=== PATIENT | female | born 1970 | race American Indian/Alaskan Native ===

== ENCOUNTER 2017-09-30 07:02 | Day surgery (SDC) | payer MEDICAID ==
[2017-09-30 07:46] VITALS: BMI 31.6
[2017-09-30] MEDS ORDERED: Bupivacaine 0.5% Inj(30mL) ONE (09:05)
[2017-09-30] MEDS ORDERED: Lidocaine 1% Inj (20ml) ONE (09:05)
--- NOTE | 2017-09-30 09:19 | CP.SDSHP ---
Same Day Surgery H & P - History Proposed Procedure: 1. Radiofrequency of right foot. 2. Stem cell injection right foot Pre-Op Diagnosis: Neuritis, right foot - Allergies Allergies: Allergies No Known Allergies Allergy (Verified 09/30/17 07:46) - Physical Exam Vital Signs: Vital Signs 09/30/17 09/30/17 07:32 07:35 Temperature 98.2 F Pulse Rate 89 89 Respiratory 20 Rate Blood Pressure 150/90 O2 Sat by Pulse 98 Oximetry - {Optional Preform as Required} Ortho: Other (pain, right foot) Short Stay Discharge - Short Stay Discharge Admitting Diagnosis/Reason for Visit: M77.31,M72.2 Disposition: HOME/ ROUTINE Referrals: Logan Best DPM [Primary Care Provider] -
[2017-09-30] MEDS ORDERED: Midazolam 2 MG/2 ML VIAL ONE (09:20)
[2017-09-30] MEDS ORDERED: Propofol 10 mg/ml Inj (20 ML) ONE (09:20)
[2017-09-30] MEDS ORDERED: Bupivacaine 0.5% Inj(30mL) IJ ONE (09:28)
[2017-09-30] MEDS ORDERED: Lidocaine 1% Inj (20ml) IJ ONE ×2 (09:28→09:35)
[2017-09-30] MEDS ORDERED: ceFAZolin IV 2 gm in Dextrose 2 GM/50 ML BAG IVPB ONE (09:28)
[2017-09-30] MEDS ORDERED: Sodium Chloride 0.9% 1,000 ML IV SCH (09:30)
[2017-09-30] MEDS ORDERED: Lactated Ringer's 1,000 ML IV ONE (09:30)
--- NOTE | 2017-09-30 09:33 | CP.PCM.PN ---
Subjective - Date & Time of Evaluation Date of Evaluation: 09/30/17 Time of Evaluation: 09:30 - Subjective Subjective: 46 year old female patient with no significant PMHx was seen and evaluated in [facility] for right foot procedure. Patient reports that she has been NPO since midnight yesterday and denies of having any adverse reaction to anesthesia. Patient denies of having any recent F/N/V/C/SOB/CP/headache/diarrhea/ constipation. Patient denies of having recent increase on urination or burning on urination. Patient denies of any new complains at this time. PMHx: Denies PSHx: Denies Allergies: N.K.D.A SHx: Denies of smoking, EtOH, or illicit drug usage Objective - Vital Signs/Intake and Output Vital Signs (last 24 hours): Temp Pulse Resp BP Pulse Ox 98.2 F 89 20 150/90 98 09/30/17 07:32 09/30/17 07:35 09/30/17 07:32 09/30/17 07:32 09/30/17 07:32 - Constitutional Appears: Well, Non-toxic, No Acute Distress - Extremities Exam Extremities Exam: Full ROM, Normal Capillary Refill, Normal Inspection. absent : Calf Tenderness Additional comments: Right foot focused exam: VASC: DP/PT pulses are palpable 2/4, Cap refill time: < 3 sec to all digits, Temp gradient: warm to cool from proximal to distal, no pitting or non-pitting edema noted DERM: No open lesions, no interdigital maceration, no clinical suspicion of active infection NEURO: Protective sensation grossly intact ORTHO: MMT: 5/5 during PF, DF, inversion, eversion; pain present on plantar right foot - Neurological Exam Neurological Exam: Alert, Awake, Oriented x3 - Psychiatric Exam Psychiatric exam: Normal Affect, Normal Mood Assessment and Plan - Assessment and Plan (Free Text) Assessment: 46 year old female patient with no significant PMHx was evaluated in [facility] for right foot procedure. Plan: Pt was seen and examined in [facility] Pt NPO status was confirmed All pre-op testing and clearance in chart Pt has exhausted all conservative treatment at this time and is opting for surgical intervention Pt was explained procedure and post-operative course All pt's questions were answered to satisfaction No guarantees were made Pt understands all risks, benefits and complications of procedure Pt will follow-up with Dr. Best within 1 week of surgery
[2017-09-30] MEDS ORDERED: Bupivacaine 0.5% 50 ML IJ ONE (09:35)
[2017-09-30] MEDS ORDERED: Triamcinolone Acetonide 40 mg/mL Inj IM ONE (09:35)
[2017-09-30] MEDS ORDERED: Triamcinolone Acetonide 40 mg/mL Inj ONE (10:00)
--- NOTE | 2017-09-30 10:10 | PCM.SURG1 ---
Surgeon's Initial Post Op Note - Surgeon's Notes Surgeon: Dr. Logan Best, DPM Deskidding Machine Operator: Max Pandya PGY1 Type of Anesthesia: IV Sedation, Local Anesthesia Administered By: Dr. Velez Pre-Operative Diagnosis: Neuritis, right foot Operative Findings: See dictation report. M: None. I: Pre- 30 cc 1:1 1% lidocaine plain, 0.5% marcaine plain. Post- 1 cc Kenalog-40 Post-Operative Diagnosis: Same Operation Performed: Radiofrequency ablation of right foot for painful neuritis Specimen/Specimens Removed: None Estimated Blood Loss: EBL {In ML}: 0 Blood Products Given: N/A Drains Used: No Drains Post-Op Condition: Good Date of Surgery/Procedure: 09/30/17 Time of Surgery/Procedure: 10:10
[2017-09-30] MEDS ORDERED: HYDROmorphone 0.5 mg/0.5 ml ISec IVP PRN (10:27)
[2017-09-30] MEDS ORDERED: Lactated Ringer's 1,000 ML IV SCH (10:30)
[2017-09-30 10:37] VITALS: BP 130/90
[2017-09-30 11:09] VITALS: PULSE 68; RESP 20; TEMP 97.8; O2SAT 98
--- NOTE | 2017-10-01 08:42 | OP ---
PROCEDURE DATE: 09/30/2017 SURGEON: Logan Best DPM. LGSW: Max Pandya, PGY-1. ANESTHESIOLOGIST: Stef Velez MD ANESTHESIA: IV sedation with local. PREOPERATIVE DIAGNOSES: 1. Chronic heel pain, right foot. 2. Fasciitis, right foot. INDICATIONS: The patient is a 46-year-old female with the above diagnoses. The patient has exhausted all conservative treatment at this time and now requires surgical intervention. The patient signed the consent after careful explanation of risks, benefits, complications and alternatives of surgical procedure. No guarantees were given nor implied. NPO status was confirmed prior to taking the patient to the OR. PREPARATION: The patient was brought into the operating room and placed on the operating room table in a supine position. Timeout was performed for to identification of the correct patient and procedure. After induction of IV sedation, the patient received a total of 30 mL of 1:1 mixture of 1% lidocaine plain and 0.5% Marcaine plain in a local block fashion to the right plantar heel and tibial nerve. The right lower extremity was then prepped and draped in the normal sterile manner and the procedure began. No tourniquet was used during the procedure. DESCRIPTION OF PROCEDURE: There were 3 points marked on the right heel approximately within 1 cm from one another plantarly indicating the most painful areas on the patient's foot. Three 22-gauge insulated radiofrequency needles were inserted percutaneously over the marked points to the targeted tissue with impedance ranging from 500 to 600 ohms on the machine. Tips of the needles were used to palpate the targeted tissue and were slightly pulled back. At this time, the radiofrequency electrodes were inserted in the radiofrequency needle; however, the radiofrequency was then gradually increased for the motor stimulation mode until 3 volts were being applied. The foot was then monitored for any signs of fasciculation of the forefoot. Once we were assured that the branch of the nerve identified was not a motor nerve, the radiofrequency unit was set to lesioning mode and lesioning of the nerve was performed at approximately 85 degree Celsius for a total of 1 minute. This process was repeated for the remaining two points to the plantar heel in the same manner as mentioned above. An injection of 1 mL of Kenalog 40 was then injected into the area as well, at the level of the medial calcaneal tubercle. The area was then washed and dressed with two bandages as well as a light Lui bandage. POSTOPERATIVE CONDITION: The patient tolerated the anesthesia and procedure well, and was escorted to the recovery room with vital signs stable and neurovascular status intact to the right lower extremity. The patient is to remain weightbearing as tolerated to the right lower extremity. The patient will be discharged from the hospital later today and will follow up with Dr. Best in his private clinic at her next regularly scheduled appointment. Max Pandya DPM JOSE
== END 2017-09-30 12:15 | disposition home or self-care (01) ==
LOC: H.OPSURG 07:02
PROVIDERS: ATTEND Podiatrist Foot & Ankle Surgery
DX: M77.31 Calcaneal spur, right foot (principal); M72.2 Plantar fascial fibromatosis; M72.8 Other fibroblastic disorders
CPT/HCPCS: 28060; 97116; 97161; G8978; G8979; G8980; J0690; J2250; J2704; J3010; J3301; J7040; J7120

== ENCOUNTER 2017-11-26 06:05 | Day surgery (SDC) | payer MEDICAID ==
[2017-11-24 14:43] VITALS: BMI 31.9
[2017-11-26 07:00] LABS: BLOOD UREA NITROGEN 14 mg/dl (7-17); CALCIUM 8.9 mg/dL (8.4-10.2); GFR AFRICAN-AMERICAN > 60; GFR NON-AFRICAN AMERICAN > 60; HEMOGLOBIN 10.5 g/dL (12.0-16.0); MEAN CORPUSCULAR HEMOGLOBIN 23.5 pg (27.0-31.0); MEAN CORPUSCULAR HGB CONC 31.3 g/dL (33.0-37.0); RBC 4.49 Mil/uL (3.80-5.20); RED CELL DISTRIBUTION WIDTH 16.1 % (11.5-14.5)
[2017-11-26] MEDS ORDERED: Propofol 10 mg/ml Inj (20 ML) ONE ×2 (07:31→08:09)
[2017-11-26] MEDS ORDERED: Midazolam 2 MG/2 ML VIAL ONE (07:31)
[2017-11-26] MEDS ORDERED: ceFAZolin IV 1 gm in Dextrose 1 GM/50 ML BAG IVPB ONE (07:41)
[2017-11-26] MEDS ORDERED: Bupivacaine 0.5% Inj(30mL) ONE (07:42)
[2017-11-26] MEDS ORDERED: Lidocaine Hydrochloride 1% 10 ML ONE (07:42)
[2017-11-26] MEDS ORDERED: Dexamethasone 4 mg/1 ml ONE (07:42)
[2017-11-26] MEDS ORDERED: Succinylcholine 200 mg/10 ml Inj IV ONE (07:48)
[2017-11-26] MEDS ORDERED: Lidocaine 1% (10 ml) Inj IV ONE (08:10)
[2017-11-26] MEDS ORDERED: Lactated Ringer's 1,000 ML IV ONE (08:40)
[2017-11-26] MEDS ORDERED: Triamcinolone Acetonide 40 mg/mL Inj IM ONE (08:40)
[2017-11-26] MEDS ORDERED: Triamcinolone Acetonide 40 mg/mL Inj ONE (08:42)
--- NOTE | 2017-11-26 08:51 | CP.PCM.PN ---
Subjective - Date & Time of Evaluation Date of Evaluation: 11/26/17 Time of Evaluation: 07:25 - Subjective Subjective: Perioperative Evaluation-Podiatry Dr. Best 47 year old female patient with PMH of HTN seen and evaluated in [facility] for right foot plantar fasciotomy with heel spur resection. Patient reports that she has right foot pain. First step in the morning is most painful. She would have pain with standing after sitting for long periods of time. Patient reports nothing to eat or drink since yesterday and denies of having any adverse reaction to anesthesia. Patient denies of having any recent F/N/V/C/SOB/CP/headache/diarrhea /constipation. Patient denies of having recent increase on urination or burning on urination. Patient denies of any new complains at this time. PMHx: HTN PSHx: , , right foot surgery Allergies: N.K.D.A SHx: denies of smoking, EtOH, or illicit drug usage FH: denies MEDS: see MAR list Objective - Vital Signs/Intake and Output Vital Signs (last 24 hours): Temp Pulse Resp BP Pulse Ox 98.3 F 68 20 128/83 100 11/26/17 06:31 11/26/17 06:35 11/26/17 06:31 11/26/17 06:31 11/26/17 06:31 - Labs Labs: 11/26/17 06:31 11/26/17 06:31 - Constitutional Appears: Well, Non-toxic, No Acute Distress - Extremities Exam Extremities Exam: absent: Calf Tenderness Additional comments: Right foot focused exam: VASC: DP/PT pulses are palpable 2/4, Cap refill time: < 3 sec to all digits, Temp gradient: warm to cool from proximal to distal, no pitting or non-pitting edema noted DERM: No open lesions, no interdigital maceration, no clinical suspicion of active infection NEURO: Protective sensation grossly intact ORTHO: MMT: 5/5 during PF, DF, inversion, eversion; pain with palpation of the medial tubercle of the calcaneus - Neurological Exam Neurological Exam: Alert, Awake, Oriented x3 - Psychiatric Exam Psychiatric exam: Normal Affect, Normal Mood Assessment and Plan - Assessment and Plan (Free Text) Assessment: 7 year old female patient with PMH of HTN seen and evaluated in [facility] for right foot plantar fasciotomy with heel spur resection Plan: Pt was seen and examined in [facility] Pt NPO status was confirmed All pre-op testing and clearance in chart Pt has exhausted all conservative treatment at this time and is opting for surgical intervention Pt was explained procedure and post-operative course All pt's questions were answered to satisfaction No guarantees were made Pt understands all risks, benefits and complications of procedure Pt will follow-up with Dr. Best within 1 week of surgery
--- NOTE | 2017-11-26 08:51 | CP.SDSHP ---
Same Day Surgery H & P - History Proposed Procedure: plantar fasciotomy right foot and heel spur resection right foot Pre-Op Diagnosis: painful right foot plantar fasciitis with heel spur - Allergies Allergies: Allergies No Known Allergies Allergy (Verified 09/30/17 07:46) - Physical Exam Vital Signs: Vital Signs 11/26/17 11/26/17 06:31 06:35 Temperature 98.3 F Pulse Rate 68 68 Respiratory 20 Rate Blood Pressure 128/83 O2 Sat by Pulse 100 Oximetry Mental Status: Alert & Oriented x3 - Impression Impression: Pt was seen and examined in [facility]. Pt NPO status was confirmed. All pre-op testing and clearance in chart. Pt has exhausted all conservative treatment at this time and is opting for surgical intervention. Pt was explained procedure and post-operative course. All pt's questions were answered to satisfaction. No guarantees were made. Pt understands all risks, benefits and complications of procedure. Pt will follow-up with Dr. Best within 1 week of surgery - Date & Time Date: 11/26/17 Time: 07:45 Short Stay Discharge - Short Stay Discharge Admitting Diagnosis/Reason for Visit: M77.31 M72.2 Disposition: HOME/ ROUTINE Referrals: Logan Best DPM [Primary Care Provider] - Additional Instructions (Diet, Activity): -Patient in good/stable condition for discharge home -Pt to resume medications per medical reconciliation -Resume regular diet Please keep dressing clean, dry, & intact to surgical site -Use plastic bag over bandage for showering -Wear post op shoe at all times when ambulating -Call clinic if you see signs of infection (redness, swelling, malodor) -Please make an appointment to see Dr. Best in office/clinic within 1 week for post-op check Progress Note/Discharge Note with Instructions: - Patient evaluated bedside in recovery s/p surgical procedure. - After surgical procedure patient in NAD - (+) Void, (+) Appetite - Capillary refill time <3s and NVSI intact. - Patient denies complaints at this time - Post operative instructions and plan of care explained to patient at length. - Pt. acknowledges understanding. - Patient stable for DC per podiatric surgery
[2017-11-26] MEDS ORDERED: HYDROmorphone 0.5 mg/0.5 ml ISec IVP PRN (08:52)
--- NOTE | 2017-11-26 08:58 | PCM.SURG1 ---
Surgeon's Initial Post Op Note - Surgeon's Notes Surgeon: Dr. Best Financial Institution Manager: Dr. Vides PGY-1 Type of Anesthesia: General LMA Anesthesia Administered By: Dr. Leal Pre-Operative Diagnosis: right painful plantar fascittis with heel spur Operative Findings: see dictations; materials: 3-0 nylon. preoperative injectables: 20 cc of 1:1 .5% marcaine plain and 1% lidocaine plain; intra- operative injectables: 1cc of kenalog-40 Post-Operative Diagnosis: painful right plantar fasciitis with heel spur Operation Performed: right plantar fasciotomy and resection of heel spur Specimen/Specimens Removed: none Estimated Blood Loss: EBL {In ML}: 1 Blood Products Given: N/A Drains Used: No Drains Post-Op Condition: Good Date of Surgery/Procedure: 11/26/17 Time of Surgery/Procedure: 07:50
[2017-11-26] MEDS ORDERED: Lactated Ringer's 1,000 ML IV SCH (09:00)
[2017-11-26] MEDS ORDERED: Oxycodone/Acetaminophen 5/325 mg Tab PO PRN ×2 (09:04)
[2017-11-26] MEDS ORDERED: Oxycodone/Acetaminophen 5/325 mg Tab PO ONE (11:40)
[2017-11-26] MEDS ORDERED: Cholecalciferol 1,000 INTLU TAB PO SCH (12:00)
[2017-11-26 12:22] VITALS: BP 110/79; PULSE 94; RESP 18; TEMP 98.5; O2SAT 97
--- NOTE | 2017-11-27 08:22 | OP ---
PROCEDURE DATE: 11/26/2017 PREOPERATIVE DIAGNOSIS: Painful plantar fasciitis with heel spur, right foot. POSTOPERATIVE DIAGNOSIS: Painful plantar fasciitis with heel spur, right foot. NAME OF PROCEDURE: 1. Plantar fasciotomy. 2. Heel spur resection of the right foot. SURGEON: Logan Best DPM CONTROL CLERK REPAIRS: Timi Vides DPM, PGY1 TYPE OF ANESTHESIA: General LMA and local. ANESTHESIA ADMINISTERED BY: Suki Leal MD INDICATIONS: The patient is a 47-year-old female with the above diagnoses. The patient has exhausted all conservative treatments at this time and now requires surgical intervention. The patient signed the consent after careful explanation of risks, benefits, complications, and alternatives for surgical procedure. No guarantees were given nor implied. N.p.o. status was confirmed prior to taking to the patient to the OR. PREPARATION: The patient was brought into the operating room and placed on the operating room table in a supine position. Time-out was performed for identification of the correct patient and procedure. After general anesthesia administered in local block consisting of 20 mL of 1:1 mixture of 1% lidocaine plain and 0.5 Marcaine plain to the right plantar heel. The lower extremity was then prepped and draped in a normal sterile manner and the procedure began. No tourniquet was used during the entire procedure. DESCRIPTION OF PROCEDURE: PROCEDURE 1: Plantar fasciotomy right foot. Attention was directed to the plantar aspect of the right heel where under C-arm guidance location at the plantar heel spur was identified. A 1 cm linear longitudinal incision was made in the medial aspect of the patient's right heel using an #11 blade. The incision was deepened through the subcutaneous tissues and tissues were freed down to the level of the heel spur. At plantar facial band through a range of motion of the #10 blade, the medial band of the plantar fascia was released and was confirmed by using a Metzenbaum to dissect any remaining fibers. Next utilizing a rasp under C-arm guidance, the plantar heel spur was removed. The wound was then flushed with copious amounts of sterile normal saline. The skin was then reapproximated and coapted using a 3-0 nylon in a simple suture technique and horizontal mattress technique. A total of 1 mL of Kenalog 40 was injected at the surgical site of the right plantar heel. The surgical site was then cleaned with saline, packed dry, Xeroform, DSD, ABD, and Kerlix applied. Coban was likely applied to the dressing. POSTOPERATIVE CONDITION: The patient tolerated the anesthesia and procedure well and was escorted to the recovery room with vital signs stable and neurovascular status intact to the lower extremity. The patient will follow up with Dr. Best in office in next week. Timi Vides DPM Logan Best DPM [email or web address]
[2017-11-27] MEDS ORDERED: Amoxicillin-Clav 875-125 mg Tab PO SCH (17:00)
== END 2017-11-26 10:20 | disposition home or self-care (01) ==
LOC: H.OPSURG 06:05
PROVIDERS: ATTEND Podiatrist Foot & Ankle Surgery
DX: M77.31 Calcaneal spur, right foot (principal); M72.2 Plantar fascial fibromatosis; I10 Essential (primary) hypertension
CPT/HCPCS: 28008; 36415; 80048; 85027; 97116; 97161; G8978; G8979; G8980; J0690; J2001; J2250; J2704; J3010; J3301; J7120